=== PATIENT | male | born 1995 | race Caucasian/White ===

== ENCOUNTER 2018-08-29 16:59 | Emergency (ER) | payer OTHER ==
[2018-08-29 17:04] VITALS: BP 117/73
[2018-08-29] MEDS ORDERED: BUDE10.25 IH (17:05)
[2018-08-29] MEDS ORDERED: ALBU8.5H IH (17:05)
[2018-08-29] MEDS ORDERED: HYDROMORPHONE HCL 1 MG/ML SYRINGE IM ONE (17:20)
--- NOTE | 2018-08-29 18:09 | ER Report ---
History and Physical Time Seen By MD: 17:15 Hx. of Stated Complaint: CLAVICLE INJURY WHILE SNOWBOARDING HPI/ROS CHIEF COMPLAINT: Fell snowboarding, pain right collarbone HISTORY OF PRESENT ILLNESS: Patient is a 23 year old male presenting to the ED after falling while snowboarding. Patient was snowboarding for the first time. Fell forward and landed on his right side. Patient felt a pop. Patient states his pain is a 10/10. Can move fingers. Stated his pinky finger was numb for a while but thinks it was because he was cold. REVIEW OF SYSTEMS: Respiratory: No cough, no dyspnea. Cardiovascular: No chest pain, no palpitations. Gastrointestinal: No nausea or no vomiting, no abdominal pain. Musculoskeletal: See HPI Allergies: Coded Allergies: Penicillins (Verified Allergy, Unknown, 08/29/18) Home Meds Active Scripts Oxycodone Hcl/Acetaminophen (PERCOCET 5-325 MG TABLET) 1 Each Tablet, 1 EACH PO Q4-6H PRN for PAIN, #20 TAB Prov:DOMINGA RODRIGUEZ [employer]LE [employer]OR 08/29/18 Reported Medications Albuterol Sulfate 90 Mcg/Act (PROAIR HFA 90 MCG/ACT) 8.5 Gm Hfa.aer.ad, 1-2 PUFF IH 3-4XD, INHALER 08/29/18 Budesonide/Formoterol Fumarate (SYMBICORT 80-4.5 MCG INHALER) 10.2 Gm Hfa.aer.ad, 10.2 GM IH BID 08/29/18 Past Medical/Surgical History Patient has a past medical history of asthma. Patient has not had any surgeries. Reviewed Nurses Notes: Yes Constitutional Vital Sign - Last 24 Hours 08/29/18 17:04 Temp 98.4 Pulse 101 Resp 20 B/P (MAP) 117/73 Pulse Ox 94 O2 Delivery Room Air Physical Exam General Appearance: The patient is alert, has no immediate need for airway protection and no current signs of toxicity. Respiratory: Chest is non tender, lungs are clear to auscultation. Cardiac: Regular rate and rhythm. Gastrointestinal: Abdomen is soft and non tender, no masses, bowel sounds normal. Musculoskeletal: Extremities have full range of motion and are non tender except right arm has limited range of motion due to pain. Patient tender to palpitation right clavicle. Patient had obvious deformity of the right clavicle. DIFFERENTIAL DIAGNOSIS: After history and physical exam differential diagnosis was considered for clavicle fracture, shoulder dislocation, contusion. Medical Decision Making EKG/Imaging Imaging CLAVICLE RIGHT Indication: Right clavicle pain after fall snowboarding. Comparison: None available Findings: 2 views right clavicle does show comminuted mid clavicular fracture with a bony fragment seen in the midline. The proximal clavicle is displaced superiorly. The AC joint appears be intact. Sternoclavicular joint appears to be grossly normal. No other indication of fracture. No dislocation. No bony lesions. Soft tissues are unremarkable. IMPRESSION: Comminuted mid right clavicular fracture. Report Dictated By: Rupert Tucker at 08/29/2018 6:06 PM Report E-Signed By: Rupert Tucker at 08/29/2018 6:07 PM ED Course/Re-evaluation ED Course Patient arrived to the ED and was placed in a room. A history and physical were obtained. Differential diagnoses was considered. On examination lungs are clear, heart is regular, patient does have obvious swelling and deformity to the right clavicle. 1 mg of IM Dilaudid and x-ray were ordered. Patient received pain medication and had improvement in pain. Patient had an X-ray to the clavicle. Results the x-ray showed obvious comminuted fracture of the right clavicle. Patient was placed in a sling after viewing the x-rays. Patient instructed to [place] up with orthopedics near [place]. Patient given pain medication prescription. Answered patient's questions. Patient discharged. Decision to Disposition Date: Aug 29, 2018 Decision to Disposition Time: 18:21 Depart Departure Latest Vital Signs Vital Signs Date Time Temp Pulse Resp B/P (MAP) Pulse Ox O2 Delivery O2 Flow Rate FiO2 08/29/18 17:04 98.4 101 20 117/73 94 Room Air Impression: Primary Impression: Clavicle fracture Condition: Improved Disposition: HOME OR SELF-CARE New Scripts Oxycodone Hcl/Acetaminophen (PERCOCET 5-325 MG TABLET) 1 Each Tablet 1 EACH PO Q4-6H PRN for PAIN, #20 TAB Prov: DOMINGA RODRIGUEZ 08/29/18 Patient Instructions: Clavicle Fracture (ED) Additional Instructions: Limit activity by pain. Ice the collar bone 2-3 times a day for 10-15 minutes. Follow up with orthopedic, call Friday to make an appointment. Return to the ER with uncontrollable pain or numbness to the hand. You may take Ibuprofen as needed for pain in addition to the pain medication. Don't take any additional Tylenol while on the pain medication. Wear the sling 23/24 hours a day, you may take it off to shower. Problem Qualifiers Primary Impression: Clavicle fracture Encounter type: initial encounter Clavicle location: shaft Fracture type: closed Fracture alignment: displaced Laterality: right Qualified Codes: S42.021A - Displaced fracture of shaft of right clavicle, initial encounter for closed fracture DOMINGA RODRIGUEZ Aug 29, 2018 18:09
--- NOTE | 2018-08-29 18:10 | RADIOLOGY IMAGING REPORT ---
FACILITY: [facility] - [place], [place] PATIENT NAME: Bruce Finney : 1995 MR: [id number] V: [id number] EXAM DATE: ORDERING PHYSICIAN: DOMINGA RODRIGUEZ TECHNOLOGIST: Location: [facility] [place] Patient: Bruce Finney : 1995 Visit/Account:[id number] Date of Sevice: 08/29/2018 CLAVICLE RIGHT Indication: Right clavicle pain after fall snowboarding. Comparison: None available Findings: 2 views right clavicle does show comminuted mid clavicular fracture with a bony fragment seen in the midline. The proximal clavicle is displaced superiorly. The AC joint appears be intact. Sternoclavicu lar joint appears to be grossly normal. No other indication of fracture. No dislocation. No bony lesions. Soft tissues are unremarkable. IMPRESSION: Comminuted mid right clavicular fracture. Report Dictated By: Rupert Tucker at 08/29/2018 6:06 PM Report E-Signed By: Rupert Tucker at 08/29/2018 6:07 PM WSN:[id number]
[2018-08-29] MEDS ORDERED: OXYC-865 PO (18:18)
== END 2018-08-29 18:35 | disposition home or self-care (01) ==
LOC: ER 17:01 → CANBEDREQ 17:21 → ER 18:35
DX: S42.021A Displaced fracture of shaft of right clavicle, initial encounter for closed fracture (principal); W18.39XA Other fall on same level, initial encounter; Y93.23 Activity, snow (alpine) (downhill) skiing, snowboarding, sledding, tobogganing and snow tubing
CPT/HCPCS: 73000; 96372; 99283; J1170